=== PATIENT | male | born 1960 | race Caucasian/White ===

== ENCOUNTER 2022-06-06 20:45 | Emergency (ER) | payer BC, SELFPAY ==
[2022-06-06] MEDS ORDERED: Meclizine HCl 25 MG TAB ONE ×2 (21:13→22:28)
[2022-06-06] MEDS ORDERED: Diazepam 5 MG TAB ONE (23:18)
== END 2022-06-06 23:57 | disposition home or self-care (01) ==
LOC: CSHERS 20:45
DX: R42 Dizziness and giddiness (principal)
CPT/HCPCS: 70450